=== PATIENT | male | born 1955 | race Caucasian/White ===

== ENCOUNTER → 2022-02-17 | Day surgery (SDC) | payer MEDICARE ==
[~2022-02-17] VITALS: Ht 177.8 cm; Wt 98.5 kg
[~2022-02-17] MED LIST: ASPIRIN EC81 MG PO; CARDURA XL8 MG PO; CERTAGEN1 EACH PO; LOVAZA1 GM PO; NORCO 5-325 TA1 EACH PO; ONE DAILY COMP1 EACH PO; PERCOCET 5-3251 EACH PO; PRINIVIL10 MG PO; VENTOLIN HFA IN18 GM INH; VITAMIN D400 UNIT PO
[2022-02-17 11:39] LABS: HCT 41.8 % (42.0-52.0); HGB 14.8 g/dl (13.2-18.0); MCH 32.8 pg (25.0-31.0); MCHC 35.4 g/dL (32.0-36.0); MCV 92.7 fL (78.0-100.0); MPV 9.2 fL (6.0-9.5); RBC 4.51 M/uL (4.70-6.00); RDW 12.4 % (11.5-14.0); WBC 5.5 K/uL (4.0-10.5)
[2022-02-17 12:09] LABS: ALBUMIN 3.6 g/dL (3.4-5.0); BILIRUBIN - TOTAL 0.8 mg/dL (0.2-1.0); BUN/CREAT RATIO (CALC) 13.7 RATIO; CREATININE 1.02 mg/dL (0.67-1.17); GLOBULIN (CALCULATION) 3.3 g/dL; POTASSIUM 4.5 mmol/L (3.5-5.1); TOTAL PROTEIN 6.9 g/dL (6.4-8.2)
== END | disposition home or self-care (01) ==
LOC: FAS 10:51
PROVIDERS: Orthopaedic Surgery
DX: M75.121 Complete rotator cuff tear or rupture of right shoulder, not specified as traumatic (principal); M75.41 Impingement syndrome of right shoulder; M75.51 Bursitis of right shoulder; M19.011 Primary osteoarthritis, right shoulder; I10 Essential (primary) hypertension; E78.00 Pure hypercholesterolemia, unspecified; J45.909 Unspecified asthma, uncomplicated; Z87.891 Personal history of nicotine dependence; Z79.899 Other long term (current) drug therapy
CPT/HCPCS: 36415; 71045; 80053; 93005; C1713; J0171; J0690; J1100; J2250; J2704; J2795; J7120